=== PATIENT | female | born 1965 | race Hispanic/Latino ===

== ENCOUNTER 2018-09-21 11:19 | Emergency (ER) | payer MEDICAID ==
[2018-09-21 11:56] VITALS: BMI 21.4
[2018-09-21] MEDS ORDERED: Albuterol-Ipratrop 3 mg / 0.5 (3 ml) UD IH STA (12:25)
[2018-09-21] MEDS ORDERED: Sodium Chloride 0.9% 1,000 ML IV STA (12:25)
--- NOTE | 2018-09-21 12:40 | ED PDOC ---
Arrival/HPI <Paty Yates - Last Filed: 09/21/18 16:09> - General Historian: Patient - History of Present Illness Narrative History of Present Illness (Text): 09/21/18 12:33 53 y o female PMhx epilepsy, recurrent PNA (hx 10 episodes), former smoker, presents to ED sent in from PMD's office for repeat CXR and IV antibotics. Pt c/o productive cough with yellow sputum, worsening shortness of breath/wheezing, and chills. States she was dx with community-acquired PNA by her PMD on 08/20/18, and was on antibiotics, Ventolin, and Prednisone for her symptoms. Last finished antibotics 2 weeks ago. Today was in PMD's office, received breathing treatment without improvement, and was thus sent to ED. Reports dyspnea with exertion. Admits to associated nasal congestion. Denies ear pain, throat pain, or MENDIOLA currently. Denies chest pain, n/v/d/c, abd pain, urinary complaints, or other symptoms currently. Denies hx of ever being intubated for symptoms. 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 Shaikh [facility]: [facility] Time/Duration: Other (1 month) Symptom Onset: Gradual Symptom Course: Worsening Quality: Tightness Activities at Onset: Rest, Light Context: Sitting, Standing, Exertion, Home <Elier Carson - Last Filed: 09/23/18 19:51> - General Chief Complaint: Cough, Cold, Congestion Time Seen by Provider: 09/21/18 12:03 Past Medical History - Provider Review Nursing Documentation Reviewed: Yes - Travel History Have you recently traveled outside [place] w/in the past 3 mons?: No - Infectious Disease Hx of Infectious Diseases: None - Tetanus Immunization Tetanus Immunization: Unknown - Psychiatric Hx Substance Use: No - Surgical History Hx Appendectomy: Yes Hx Section: Yes (x2) Other/Comment: L axillary lymph node removal - Anesthesia Hx Anesthesia Reactions: No Hx Malignant Hyperthermia: No <Elier Carson - Last Filed: 09/23/18 19:51> Family/Social History - Physician Review Nursing Documentation Reviewed: Yes Family/Social History: No Known Family HX Smoking Status: Former Smoker Hx Alcohol Use: No Hx Substance Use: No Hx Substance Use Treatment: No <AlliElier - Last Filed: 09/23/18 19:51> Allergies/Home Meds <Paty Yates - Last Filed: 09/21/18 16:09> <Alli,Elier - Last Filed: 09/23/18 19:51> Allergies/Adverse Reactions: Allergies cefuroxime [From Ceftin] Allergy (Verified 09/21/18 11:48) RASH levofloxacin [From Levaquin] Allergy (Verified 09/21/18 12:01) RASH Penicillins Allergy (Verified 09/21/18 11:48) RASH Review of Systems - Physician Review All systems were reviewed & negative as marked: Yes - Review of Systems Constitutional: Fatigue. absent: Fevers, Night Sweats Eyes: absent: Vision Changes ENT: Sinus Congestion. absent: Voice Changes, Sore Throat Respiratory: SOB, Cough, Sputum, Wheezing Cardiovascular: CANO. absent: Chest Pain, Palpitations, Edema Gastrointestinal: absent: Abdominal Pain, Stool Changes, Constipation, Diarrhea, Nausea, Vomiting, Appetite Changes, Anorexia Genitourinary Female: absent: Dysuria, Frequency, Urine Output Changes Skin: absent: Rash, Pruritis Neurological: absent: Headache, Dizziness, Focal Weakness, Gait Changes Endocrine: absent: Diaphoresis <AlliElier carter - Last Filed: 09/23/18 19:51> Physical Exam Vital Signs Temp Pulse Resp BP Pulse Ox 09/21/18 15:16 77 18 131/80 96 09/21/18 13:53 98.6 F 78 18 143/78 96 09/21/18 11:20 98.2 F 75 20 131/83 93 L <Paty Yates - Last Filed: 09/21/18 16:09> Vital Signs Reviewed: Yes Vital Signs Temp Pulse Resp BP Pulse Ox 09/21/18 11:20 98.2 F 75 20 131/83 93 L Temperature: Afebrile Blood Pressure: Normal Pulse: Regular Respiratory Rate: Normal Appearance: Positive for: Non-Toxic, Ill-Appearing, Uncomfortable Pain Distress: None Mental Status: Positive for: Alert and Oriented X 3 - Systems Exam Head: Present: Atraumatic, Normocephalic Pupils: Present: PERRL Extroacular Muscles: Present: EOMI Conjunctiva: Present: Normal Ears: Present: Fluid (present in R ear). No: Erythema, TM Bulging Mouth: Present: Moist Mucous Membranes Pharnyx: Present: ERYTHEMA. No: EXUDATE, Soft Palate/Uvular Edema Neck: Present: Normal Range of Motion, Lymphadenopathy. No: JVD Respiratory/Chest: Present: Wheezes (Appreciated in all lung juarez), Tachypneic, Tender to Palpation. No: Respiratory Distress, Accessory Muscle Use Cardiovascular: Present: Regular Rate and Rhythm, Normal S1, S2. No: Murmurs, Rub, Gallop Abdomen: Present: Normal Bowel Sounds. No: Tenderness, Distention, Rebound, Mass/Organomegaly Upper Extremity: Present: Normal Inspection, Normal ROM, NORMAL PULSES, Neurovascularly Intact, Capillary Refill < 2s. No: Cyanosis, Edema, Temperature Abnormalties Lower Extremity: Present: Normal Inspection, NORMAL PULSES, Normal ROM, Neurovascularly Intact, Capillary Refill < 2 s. No: Edema, CALF TENDERNESS, Temperature Abnormalties Neurological: Present: GCS=15, CN II-XII Intact, Speech Normal, Motor Func Grossly Intact Skin: Present: Warm, Dry, Normal Color. No: Rashes Lymphatic: Present: Cervical Adenopathy Psychiatric: Present: Alert, Oriented x 3, Normal Insight, Normal Concentration <Elier Carson - Last Filed: 09/23/18 19:51> Medical Decision Making ED Course and Treatment: 09/21/18 12:50 53 year old female presents to the Emergency department complaining of worsening shortness of breath. In agreement with resident note which contains more details about the patient. Patient seen and evaluated with resident. Came up with plan and treatment together. - Lab Interpretations Lab Results: 09/21/18 12:45 09/21/18 12:45 Lab Results 09/21/18 12:45: Sodium 140, Potassium 4.2, Chloride 103, Carbon Dioxide 23, Anion Gap 18, BUN 8, Creatinine 0.5 L, Est GFR ( Amer) > 60, Est GFR (Non-Af Amer) > 60, Random Glucose 99, Calcium 9.3, Total Bilirubin 0.5, AST 243 H, ALT 143 H, Alkaline Phosphatase 81, Total Protein 8.2, Albumin 4.8, Globulin 3.4, Albumin/Globulin Ratio 1.4 09/21/18 12:45: WBC 5.2, RBC 4.19, Hgb 13.7, Hct 41.0, MCV 97.9, MCH 32.7, MCHC 33.4, RDW 13.0, Plt Count 272, MPV 8.7, Gran % 49.3 L, Lymph % (Auto) 42.9 H, [place] % (Auto) 6.4 H, Eos % (Auto) 0.6 L, Baso % (Auto) 0.8, Gran # 2.55, Lymph # (Auto) 2.2, [place] # (Auto) 0.3, Eos # (Auto) 0.0, Baso # (Auto) 0.04 - RAD Interpretation Radiology Orders: 09/21/18 12:23 CHEST PORTABLE [RAD] Stat - Medication Orders Current Medication Orders: Discontinued Medications Albuterol/Ipratropium (Duoneb 3 Mg/0.5 Mg (3 Ml) Ud) 3 ml IH STAT STA Stop: 09/21/18 12:26 Last Admin: 09/21/18 12:53 Dose: 3 ml Sodium Chloride (Sodium Chloride 0.9%) 1,000 mls @ 999 mls/hr IV .Q1H1M STA Stop: 09/21/18 13:25 Last Admin: 09/21/18 12:43 Dose: 999 mls/hr eMAR Start Stop Document 09/21/18 12:43 BB (Rec: 09/21/18 12:44 BB [id number]) Intravenous Solution Start Date 09/21/18 Start Time 12:44 End Date 09/21/18 End time 13:44 Total Infusion Time 60 Methylprednisolone (Solu-Medrol) 125 mg IVP STAT STA Stop: 09/21/18 14:30 Last Admin: 09/21/18 14:46 Dose: 125 mg IVP Administration Document 09/21/18 14:46 BB (Rec: 09/21/18 14:46 BB [id number]) Charges for Administration # of IVP Administrations 1 <Paty Yates - Last Filed: 09/21/18 16:09> ED Course and Treatment: 09/21/18 12:46 53 y o female PMhx epilepsy, recurrent PNA (hx 10 episodes), former smoker, presents with worsening shortness of breath, wheezing and productive cough worsening x 1 month. Failure of outpatient tx for CAP. O2 sat on initial vitals 93%. Plan: -CXR -Duoneb -IVF -Labs, sputum cx -Continue to monitor 09/21/18 14:41 Reassessed pt, states her shortness of breath and wheezing is improving. Ordered Solu-Medrol 125 mg IVP x1 and additional duoneb tx. Continue to monitor. CXR neg for acute disease or consolidation. Normal WBC on lab work-up. 09/21/18 16:00 Reassessed pt, states she feels better and would like to go home at this time. Patient to be discharged on PO prednisone for total of 5 days. To follow with PMD Dr. Shaikh within 2-3 days of ER discharge. All questions and concerns addressed with pt and she is agreeable to plan. - RAD Interpretation Radiology Orders: 09/21/18 12:23 CHEST PORTABLE [RAD] Stat - Medication Orders Current Medication Orders: Sodium Chloride (Sodium Chloride 0.9%) 1,000 mls @ 999 mls/hr IV .Q1H1M STA Stop: 09/21/18 13:25 Discontinued Medications Albuterol/Ipratropium (Duoneb 3 Mg/0.5 Mg (3 Ml) Ud) 3 ml IH STAT STA Stop: 09/21/18 12:26 <Elier Carson - Last Filed: 09/23/18 19:51> - PA / BRIM ROUNDER / Resident Statement / has reviewed & agrees with the documentation as recorded. MD/ has examined the patient and agrees with the treatment plan. - Scribe Statement The provider has reviewed the documentation as recorded by the Gabriella Vang. All medical record entries made by the Gabriella were at my direction and personally dictated by me. I have reviewed the chart and agree that the record accurately reflects my personal performance of the history, physical exam, medical decision making, and the department course for this patient. I have also personally directed, reviewed, and agree with the discharge instructions and disposition. <Paty Yates - Last Filed: 09/21/18 16:09> Disposition/Present on Arrival <Paty Yates - Last Filed: 09/21/18 16:09> - Present on Arrival Any Indicators Present on Arrival: No History of DVT/PE: No History of Uncontrolled Diabetes: No Urinary Catheter: No History of Decub. Ulcer: No History Surgical Site Infection Following: None - Disposition Have Diagnosis and Disposition been Completed?: Yes Disposition Time: 16:00 <Elier Carson - Last Filed: 09/23/18 19:51> - Disposition Diagnosis: Bronchitis Disposition: HOME/ ROUTINE Condition: STABLE Discharge Instructions (ExitCare): Acute Bronchitis Additional Instructions: PATI APPIAH, thank you for letting us take care of you today. Your provider was Paty Yates MD and you were treated for ( breathing problem). The emergency medical care you received today was directed at your acute symptoms. If you were prescribed any medication, please fill it and take as directed. It may take several days for your symptoms to resolve. Return to the Emergency Department if your symptoms worsen, do not improve, or if you have any other problems. Please contact your doctor for a follow up appointment in 1-2 days. Bring any paperwork you were given at discharge with you along with any medications you are taking to your follow up visit. Our treatment cannot replace ongoing medical care by a primary care provider outside of the emergency department. Thank you for allowing the [facility] team to be part of your care today. Prescriptions: predniSONE [Prednisone] 40 mg PO DAILY #10 tab Referrals: Sherice Marcum MD [Primary Care Provider] - Follow up with primary Forms: [employer] (Vietnamese)
[2018-09-21 13:03] LABS: HEMOGLOBIN 13.7 g/dL (12.0-16.0); MEAN CELL VOLUME 97.9 fl (80.0-105.0); MEAN CORPUSCULAR HEMOGLOBIN 32.7 pg (25.0-35.0); RBC 4.19 10^6/uL (3.5-6.1); WHITE BLOOD COUNT 5.2 10^3/uL (4.5-11.0)
[2018-09-21 13:04] LABS: BASO # 0.04 K/mm3 (0.0-2.0); BASO % 0.8 % (0.0-3.0); EOS % 0.6 % (1.5-5.0); GRAN # 2.55 (1.4-6.5); GRAN % 49.3 % (50.0-68.0); LYMPH # 2.2 (1.2-3.4); LYMPH % 42.9 % (22.0-35.0); MEAN CORPUSCULAR HGB CONC 33.4 g/dl (31.0-37.0); MEAN PLATELET VOLUME 8.7 fl (7.0-11.0); MONO # 0.3 (0.1-0.6); MONO % 6.4 % (1.0-6.0)
[2018-09-21 13:31] LABS: BLOOD UREA NITROGEN 8 mg/dL (7-21); GFR NON-AFRICAN AMERICAN > 60
[2018-09-21 13:32] LABS: ALB/GLOB RATIO 1.4 (1.1-1.8); ALBUMIN 4.8 g/dL (3.0-4.8); ALT/SGPT 143 U/L (7-56); AST/SGOT 243 U/L (14-36); CALCIUM 9.3 mg/dL (8.4-10.5)
--- NOTE | 2018-09-21 13:44 | RAD ---
Date of service: 09/21/2018 HISTORY: wheezing, shortness of breath COMPARISON: 09/01/2018 FINDINGS: LUNGS: No active pulmonary disease. PLEURA: No significant pleural effusion identified, no pneumothorax apparent. CARDIOVASCULAR: No aortic atherosclerotic calcification present. Normal cardiac size. No pulmonary vascular congestion. OSSEOUS STRUCTURES: No significant abnormalities. VISUALIZED UPPER ABDOMEN: Normal. OTHER FINDINGS: None. IMPRESSION: No active disease.
[2018-09-21 13:55] VITALS: RESP 18; TEMP 98.6
[2018-09-21 15:17] VITALS: PULSE 77
[2018-09-21 16:16] VITALS: BP 129/71; O2SAT 95
== END 2018-09-21 16:13 | disposition home or self-care (01) ==
LOC: ED 11:19
DX: J40 Bronchitis, not specified as acute or chronic (principal); Z87.891 Personal history of nicotine dependence
CPT/HCPCS: 71045; 80053; 85025; 96361; 96374; 99284; J2930; J7030

== ENCOUNTER 2018-12-24 10:46 | Outpatient (CLI) | payer MEDICAID | END 2018-12-24 10:47 | disposition home or self-care (01) | LOC: PAT 10:46 ==

== ENCOUNTER 2019-01-04 08:39 | Day surgery (SDC) | payer MEDICAID ==
[2019-01-04 09:14] VITALS: BMI 21.4
[2019-01-04] MEDS ORDERED: Lidocaine 1% Inj (20ml) ONE (12:04)
[2019-01-04] MEDS ORDERED: Propofol 10 mg/ml Inj (20 ML) ONE (12:04)
[2019-01-04] MEDS ORDERED: Midazolam 2 MG/2 ML VIAL ONE ×3 (12:04→13:54)
[2019-01-04] MEDS ORDERED: Bupivacaine 0.5% 50 ML IJ ONE (12:48)
[2019-01-04] MEDS ORDERED: Bupivacaine Liposomal Inj 20 ml ONE (12:48)
[2019-01-04] MEDS ORDERED: Bupivacaine Liposomal Inj 20 ml INJ ONE (12:50)
[2019-01-04] MEDS ORDERED: Bupivacaine 0.5% Inj(30mL) IJ ONE (12:51)
[2019-01-04] MEDS ORDERED: TraMADol/Apap 37.5/325 mg Tab PO PRN (13:46)
--- NOTE | 2019-01-04 13:46 | PCM.SURG1 ---
Surgeon's Initial Post Op Note - Surgeon's Notes Surgeon: Dr. Pal Industrial Tech Instructor: Guanako PGY3; Terrence PGY2 Type of Anesthesia: General Endo, Local Anesthesia Administered By: Dr. Rangel Pre-Operative Diagnosis: Right Inguinal Hernia Operative Findings: See operative report Post-Operative Diagnosis: Same Operation Performed: Open Right Inguinal Hernia Repair with mesh Specimen/Specimens Removed: None Estimated Blood Loss: EBL {In ML}: 10 Blood Products Given: N/A Drains Used: No Drains Post-Op Condition: Good Date of Surgery/Procedure: 01/04/19 Time of Surgery/Procedure: 13:45
[2019-01-04] MEDS ORDERED: HYDROmorphone 0.5 mg/0.5 ml ISec IVP PRN (13:51)
[2019-01-04] MEDS ORDERED: Midazolam 2 MG/2 ML VIAL IVP ONE (13:53)
[2019-01-04] MEDS ORDERED: Lactated Ringer's 1,000 ML IV SCH (14:00)
[2019-01-04 14:46] VITALS: TEMP 97.5
[2019-01-04 15:19] VITALS: PULSE 65; RESP 18; O2SAT 95
[2019-01-04 16:45] VITALS: BP 110/71
--- NOTE | 2019-01-06 02:14 | OP ---
PROCEDURE DATE: 01/04/2019 SURGEON: Sly Pal MD COORDINATOR SKILL TRAINING PROGRAM: Florian Rangel MD ANESTHESIA: General - LMA - Exparel. RETAIL SALES ADVISOR: Bob Ocampo DO, PGY-3 PREOPERATIVE DIAGNOSES: 1. Reducible right inguinal hernia. 2. Seizure disorder. 3. Anxiety disorder. POSTOPERATIVE DIAGNOSES: 1. Reducible right inguinal hernia. 2. Seizure disorder. 3. Anxiety disorder. PROCEDURE: Right inguinal herniorrhaphy with a mesh. OPERATIVE INDICATIONS: The patient is a 53-year-old female who has been having progressive pain and frequent urination with this pain localized to the right inguinal ligament. She has had a previous left inguinal herniorrhaphy and a previous Pfannenstiel incision and has been referred by her private physician now for definitive correction of this hernia that is becoming increasingly symptomatic. OPERATIVE NOTE: The patient was brought from the holding area to the operating room and underwent identification of her wristband and time-out procedure. She was then placed on the table in a supine manner to undergo the induction of general anesthesia with an intralaryngeal mask and has a Daly catheter inserted to decompress her bladder. Sequential compression devices were placed on her lower extremities. The abdomen was prepped with Hibiclens (chlorhexidine) preparation, and the patient was aseptically draped. Transverse incision was made to line up with the previous incisions in the lines of Ion, and sharp dissection was carried down through the skin to the subcutaneous tissue below. Hemostasis was contained with electrocoagulation cautery. The cicatrix and fat layers were dissected with the cautery scalpel, and the external oblique aponeurosis was now visualized. Incision was made along the direction of the fibers over the inguinal canal and elevating both ends of the external oblique. The internal ring was now identified, and a large fat mass was seen bulging from the internal ring. At this particular point, it was bluntly dissected. The inguinal floor was only mildly patulous, and a medium sized PerFix plug was inserted into the transversalis fascia into the hernia sac and secured with a 2-0 Prolene suture closing the defect and securing the patch. A Marlex patch was now cut to size, placed over the inguinal floor and secured with 3-0 Polysorb interrupted suture. The external oblique was now closed with a running 2-0 Polysorb suture. The genitofemoral suprapubic region was infiltrated with the Exparel - bupivacaine combination as was the L1-L2 nerve root at the anterior superior iliac spine and includes the transversalis and Poupart's ligaments as well as the external oblique. At this point, the subcutaneous tissues were closed with a running 3-0 Polysorb suture returning as a subcuticular closure and tied to the first knot and reinforced with AutoSuture skin stapler closure. The skin was also infiltrated with long-acting Exparel, and a dry dressing was applied. The catheter was now removed. The patient was awakened, extubated and transported to the recovery room in a satisfactory condition. Sponge, instrument and suture count were verified as correct at the end of the procedure. Estimated blood loss during this procedure was less than 5 mL of blood. The surgical lead was present throughout from beginning to end and was extremely essential in the dissection of the hernia and in the correction of the herniorrhaphy. Sly Pal MD
== END 2019-01-04 17:35 | disposition home or self-care (01) ==
LOC: SDS 08:39
PROVIDERS: ATTEND Surgery
DX: K40.90 Unilateral inguinal hernia, without obstruction or gangrene, not specified as recurrent (principal); G40.909 Epilepsy, unspecified, not intractable, without status epilepticus; F41.9 Anxiety disorder, unspecified
CPT/HCPCS: 36415; 49505; 80156; 80177; 80201; 86850; 86900; J1170; J2060; J2250; J2405; J2704; J3010; J7120 ×2